=== PATIENT | female | born 1975 | race Caucasian/White ===

== ENCOUNTER 2022-04-14 10:43 | Observation (INO) | payer MEDICAID, OTHER ==
[~2022-04-14] VITALS: Ht 154.9 cm; Wt 66.2 kg
[2022-04-14] MEDS ORDERED: IRON SUCROSE COMPLEX 100 MG/5 ML ML IV NR (11:30)
[2022-04-14 12:20] LABS: BASOPHILS % 0.8 % (0.0-2.0); EOSINOPHILS % 0.8 % (0.0-5.0); HEMATOCRIT. 23.8 % (36.0-48.0); HEMOGLOBIN. 7.6 g/dL (12.0-16.0); LYMPHOCYTES % 23.8 % (20.0-50.0); MEAN CORPUSCULAR HEMOGLOBIN 21.1 pg (28.0-32.0); MEAN CORPUSCULAR VOLUME 66.1 fL (81.0-99.0); MONOCYTES % 5.4 % (2.0-8.0); NEUTROPHILS % 69.2 % (40.0-76.0); PLATELET 413 x1000/uL (130-400); RED CELL DISTRIBUTION WIDTH 20.1 % (11.6-14.6)
[2022-04-14 12:59] LABS: PLATELET ESTIMATE INCREASED
[2022-04-14 13:13] LABS: CLARITY URINE CLOUDY (CLEAR); COLOR URINE YELLOW (YELLOW); KETONES URINE TRACE (NEGATIVE); LEUKOCYTE ESTERASE URINE 2+ (NEGATIVE); NITRITE URINE POSITIVE (NEGATIVE); OCCULT BLOOD URINE NEGATIVE (NEGATIVE); PH URINE 6.5 (4.5-8.0); PROTEIN URINE 1+ (NEGATIVE)
[2022-04-14] MEDS ORDERED: SODIUM CHLORIDE 0.9% 500 ML IV ONE (13:30)
== END 2022-04-14 15:30 | disposition home or self-care (01) ==
LOC: 8 EST A/PP 10:43
PROVIDERS: ADMIT Obstetrics & Gynecology; ATTEND Obstetrics & Gynecology
DX: O09.523 Supervision of elderly multigravida, third trimester (principal); O99.013 Anemia complicating pregnancy, third trimester; D50.9 Iron deficiency anemia, unspecified; Z3A.33 33 weeks gestation of pregnancy
CPT/HCPCS: 36415; 59025; 81003; 85025; 96361; 96374; G0378; 99281

== ENCOUNTER 2022-05-25 21:47 | Inpatient (IN) | payer MEDICAID ==
[~2022-05-25] VITALS: Ht 154.9 cm; Wt 68.9 kg
[2022-05-25] MEDS ORDERED: LACTATED RINGERS 1,000 ML IV SCH (23:00)
[2022-05-25] MEDS ORDERED: LIDOCAINE HCL 1% 10 MG/ML 10ML VIAL IJ SCH (23:00)
[2022-05-25] MEDS ORDERED: CARBOPROST TROMETHAMINE 250 MCG/ML AMPUL IM PRN (23:00)
[2022-05-25] MEDS ORDERED: METHYLERGONOVINE MALEATE 0.2 MG/ML IM PRN ×2 (23:00→23:45)
[2022-05-25] MEDS ORDERED: BUTORPHANOL TARTRATE 2 MG/ML VIAL IV PRN (23:00)
[2022-05-25] MEDS ORDERED: MISOPROSTOL 100MCG TABLET VG SCH (23:00)
[2022-05-25] MEDS: OXYTOCIN 30 UNITS/500ML NS PMX 500 ML IV SCH (23:18)
[2022-05-25] MEDS ORDERED: IBUPROFEN 400MG TABLET PO PRN (23:45)
[2022-05-25] MEDS ORDERED: ACETAMINOPHEN WITH CODEINE 300/30MG TABLET PO PRN (23:45)
[2022-05-25] MEDS ORDERED: DIPHENHYDRAMINE 25MG CAPSULE PO PRN (23:45)
[2022-05-25] MEDS ORDERED: GLYCERIN/WITCH HAZEL LEAF MEDICATED PAD TOP PRN (23:45)
[2022-05-25] MEDS ORDERED: RHO(D) IMMUNE GLOBULIN 300 MCG/SYR IM PRN (23:45)
[2022-05-25] MEDS ORDERED: HEMORRHOIDAL SUPP PR PRN (23:45)
[2022-05-25] MEDS ORDERED: OXYTOCIN 30 UNITS/500ML NS PMX 500 ML IV SCH (23:45)
[2022-05-25] MEDS ORDERED: BISACODYL 10MG SUPP PR PRN (23:45)
[2022-05-25] MEDS ORDERED: IBUPROFEN 800MG TABLET PO PRN (23:45)
[2022-05-25] MEDS ORDERED: LANOLIN OINT 7GM TUBE TOP PRN (23:45)
[2022-05-26] MEDS ORDERED: PENICILLIN G POTASSIUM 5 MMU in DEXT 5% WATER 100 ML IV NR ×2
[2022-05-26 00:25] LABS: CLARITY URINE CLEAR (CLEAR); COLOR URINE YELLOW (YELLOW); KETONES URINE 1+ (NEGATIVE); LEUKOCYTE ESTERASE URINE NEGATIVE (NEGATIVE); NITRITE URINE NEGATIVE (NEGATIVE); OCCULT BLOOD URINE NEGATIVE (NEGATIVE); PH URINE 6.5 (4.5-8.0); PROTEIN URINE TRACE (NEGATIVE); SPECIFIC GRAVITY URINE 1.026 (1.005-1.030)
[2022-05-26 00:35] LABS: *AMPHETAMINES SCREEN URINE NEGATIVE (NEGATIVE); *BARBITURATES SCREEN URINE NEGATIVE (NEGATIVE); *BENZODIAZEPINES SCREEN URINE NEGATIVE (NEGATIVE); *COCAINE SCREEN URINE NEGATIVE (NEGATIVE); CANNABINOID URINE SCREEN NEGATIVE (NEGATIVE); METHADONE URINE SCREEN NEGATIVE (NEGATIVE); OPIATES URINE SCREEN NEGATIVE (NEGATIVE); PHENCYCLIDINE URINE SCREEN NEGATIVE (NEGATIVE)
[2022-05-26] MEDS: OXYTOCIN 30 UNITS/500ML NS PMX 500 ML IV SCH (01:19)
[2022-05-26 01:30] VITALS: BP 101/45
[2022-05-26 04:00] VITALS: BP 95/41
[2022-05-26] MEDS ORDERED: PENICILLIN G POTASSIUM 2.5 MMU in DEXTROSE 5% WATER 50 ML IV SCH (04:00)
[2022-05-26 07:30] VITALS: BP 85/45
[2022-05-26] MEDS: FERROUS SULFATE 325MG TABLET PO SCH ×3 (07:56→17:22)
[2022-05-26] MEDS ORDERED: PRENATAL VIT/FE FUMARATE/FA TABLET PO SCH (09:00)
[2022-05-26 09:25] LABS: INR 0.9; PARTIAL THROMBOPLASTIN TIME 29.2 sec (23.4-31.0); PROTHROMBIN TIME 9.8 sec (9.6-11.0)
[2022-05-26 09:28] LABS: BASOPHILS % 0.2 % (0.0-2.0); EOSINOPHILS % 0.3 % (0.0-5.0); HEMATOCRIT. 28.3 % (36.0-48.0); HEMOGLOBIN. 8.9 g/dL (12.0-16.0); LYMPHOCYTES % 18.2 % (20.0-50.0); MEAN CORPUSCULAR HEMOGLOBIN 22.1 pg (28.0-32.0); MEAN CORPUSCULAR VOLUME 70.3 fL (81.0-99.0); MEAN PLATELET VOLUME 7.3 fl (7.4-10.4); MONOCYTES % 4.1 % (2.0-8.0); NEUTROPHILS % 77.2 % (40.0-76.0); PLATELET 421 x1000/uL (130-400); RED BLOOD CELL COUNT 4.02 mill/uL (4.2-5.4); RED CELL DISTRIBUTION WIDTH 25.1 % (11.6-14.6)
[2022-05-26 11:00] LABS: PLATELET ESTIMATE INCREASED
[2022-05-26 11:41] LABS: HEPATITIS B SURFACE ANTIGEN NEGATIVE
[2022-05-26 15:39] VITALS: BP 91/45
[2022-05-26 19:00] VITALS: BP 90/41
[2022-05-26] MEDS ORDERED: DOCUSATE SODIUM 100MG CAPSULE PO SCH (21:00)
[2022-05-27 04:00] VITALS: BP 93/47
[2022-05-27] MEDS ORDERED: IBUP-2030 PO (06:18)
[2022-05-27 08:00] VITALS: BP 95/52
== END 2022-05-27 11:10 | disposition home or self-care (01) | DRG 560 ==
LOC: OBSVTOIN 21:47 → 8 EST LDRP 21:47 → 8EST 05-26 04:04
PROVIDERS: ADMIT Obstetrics & Gynecology; ATTEND Obstetrics & Gynecology
PROC: 10E0XZZ Delivery of Products of Conception, External Approach (ICD-10-PCS; principal; 2022-05-25)
DX: O99.02 Anemia complicating childbirth (principal); Z37.0 Single live birth; O90.6 Postpartum mood disturbance; O77.0 Labor and delivery complicated by meconium in amniotic fluid; Z3A.39 39 weeks gestation of pregnancy; Z20.822 Contact with and (suspected) exposure to COVID-19
CPT/HCPCS: 36415; 80305; 81003; 85025; 86592; 86703; 86762; 86850; 86900; 87340; 87426; 99281; G0378; J2540; J7060; J2590